=== PATIENT | male | born 1990 | race African-American/Black ===

== ENCOUNTER 2017-07-26 14:39 | Emergency (ER) | payer OTHER ==
[~2017-07-26] VITALS: Ht 188 cm; Wt 108.9 kg
[2017-07-26 15:00] VITALS: BP 140/76
[2017-07-26 15:11] LABS: BILIRUBIN,URINE NEGATIVE (NEG); GLUCOSE,URINE NEGATIVE (NEG); NITRITE,URINE NEGATIVE (NEG); PH,URINE 7.5; PROTEIN,URINE NEGATIVE (NEG-TRACE); UROBILINOGEN,URINE 0.2 mg/dL (0.2 mg/dL)
[2017-07-26 15:19] LABS: RBC,URINE 0 /HPF (0-2)
[2017-07-26 15:20] LABS: BACTERIA,URINE 0 /HPF (0-FEW); SQUAMOUS EPITHELIAL CELL,UR FEW /LPF
[2017-07-26] MEDS ORDERED: CIPR500T94 PO (15:26)
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
[2017-07-26] MEDS ORDERED: AZITHROMYCIN 250 MG TABLET. PO ONE (15:30)
[2017-07-26] MEDS ORDERED: cefTRIAXone IM 250 MG VIAL IM ONE (15:30)
[2017-07-26] MEDS ORDERED: metroNIDAZOLE 500 MG TABLET PO ONE (15:30)
--- NOTE | 2017-07-29 11:44 | VNOTE ---
CALL BACK NOTE CALL BACK Microbiology 07/26/17 Urine Culture - Preliminary, Resulted 07/26/17 Urine Culture Result 1 (SHMUEL) - Preliminary, Resulted Notified patient of his home number in regards to his positive gonorrhea test. Patient had been treated here in the emergency department. He was recommended to have his partner treated. He was also recommended to avoid sexual intercourse with his partner for 2 weeks after she had been treated. Patient agrees with information also provided safe sex information. CLARA IZAGUIRRE CLAY GRINDER Jul 29, 2017 11:44
== END 2017-07-26 15:39 | disposition home or self-care (01) ==
LOC: ER 14:39
DX: Z20.2 Contact with and (suspected) exposure to infections with a predominantly sexual mode of transmission (principal); N39.0 Urinary tract infection, site not specified
CPT/HCPCS: 81001; 87086; 87491; 87591; 99284; Q0144

== ENCOUNTER 2017-10-02 18:35 | Emergency (ER) | payer SELFPAY ==
[~2017-10-02 18:35] MED LIST: CIPR500T94 PO
[2017-10-02] MEDS ORDERED: METOCLOPRAMIDE HCL 10 MG/2 ML VIAL. IV ONE (19:30)
[2017-10-02] MEDS ORDERED: DEXAMETHASONE SOD PHOS 20 MG/5 ML VIAL. IV ONE (19:30)
[2017-10-02] MEDS ORDERED: KETOROLAC 30 MG/ML INJ. IV ONE (19:30)
[2017-10-02] MEDS ORDERED: IV NORMAL SALINE 1000ML BAG 1,000 ML IV SCH (19:30)
[2017-10-02] MEDS ORDERED: diphenhydrAMINE 50 MG/ML VIAL IVP ONE (19:30)
[2017-10-02 20:25] VITALS: BP 136/66
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
== END 2017-10-02 21:10 | disposition home or self-care (01) ==
LOC: ER 18:35
DX: G43.909 Migraine, unspecified, not intractable, without status migrainosus (principal); J45.909 Unspecified asthma, uncomplicated
CPT/HCPCS: 96361; 96374; 96375; 99284; J1100; J1200; J1885; J2765; J7030

== ENCOUNTER 2019-03-13 19:41 | Emergency (ER) | payer SELFPAY ==
[~2019-03-13] VITALS: Ht 188 cm; Wt 113.4 kg
[2019-03-13 19:56] VITALS: BP 139/86
[2019-03-13] MEDS ORDERED: CHLO15MO2 PO (22:00)
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
[2019-03-13] MEDS ORDERED: DEXAMETHASONE 4 MG TABLET PO ONE (22:30)
[2019-03-13] MEDS ORDERED: LIDOCAINE 2% VISCOUS 15 ML SOLUTION. SWSW ONE (22:30)
== END 2019-03-13 22:17 | disposition home or self-care (01) ==
LOC: ER 19:41
DX: K14.8 Other diseases of tongue (principal); J45.909 Unspecified asthma, uncomplicated; G43.909 Migraine, unspecified, not intractable, without status migrainosus
CPT/HCPCS: 99283; J8540

== ENCOUNTER 2020-07-02 10:54 | Emergency (ER) | payer SELFPAY ==
[~2020-07-02] VITALS: Ht 185.4 cm; Wt 112.2 kg
[~2020-07-02 10:54] MED LIST changes: +CHLO15MO2 PO
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
[2020-07-02 11:09] VITALS: BP 150/91
[2020-07-02] MEDS ORDERED: cefTRIAXone IM 250 MG VIAL IM ONE (11:15)
[2020-07-02] MEDS ORDERED: AZITHROMYCIN 250 MG TABLET. PO ONE (11:15)
== END 2020-07-02 11:33 | disposition home or self-care (01) ==
LOC: ER 10:54
DX: Z20.2 Contact with and (suspected) exposure to infections with a predominantly sexual mode of transmission (principal); R36.9 Urethral discharge, unspecified; R30.9 Painful micturition, unspecified; J45.909 Unspecified asthma, uncomplicated; G43.909 Migraine, unspecified, not intractable, without status migrainosus; F17.200 Nicotine dependence, unspecified, uncomplicated
CPT/HCPCS: 87491; 87591; 96372; 99283; J0696